=== PATIENT | female | born 1985 | race Caucasian/White ===

== ENCOUNTER 2020-04-08 08:34 | Outpatient (REF) | payer OTHER, SELFPAY ==
[2020-04-08 11:40] LABS: Alanine Aminotransferase 22 U/L (0-31); Albumin Level 4.2 g/dL (3.5-5.0); Alkaline Phosphatase 72 U/L (39-117); Anion Gap 11 (12-20); Aspartate Amino Transferase 28 U/L (5-31); Bilirubin Total 0.8 mg/dL (0.0-1.0); Blood Urea Nitrogen 30 mg/dL (9-16); Calcium 8.4 mg/dL (8.4-10.2); Carbon Dioxide 22 mmol/L (22-29); Chloride 110 mmol/L (96-108); Cholesterol 182 mg/dL; Estimated Glomerular Filt Rate > 60; Glucose Fasting 81 mg/dL (60-99); HDL Cholesterol 75 mg/dL; LDL Cholesterol Calculated 95 mg/dl; Potassium 3.9 mmol/l (3.3-5.1); Sodium 139 mmol/L (135-145); Total Protein 6.6 g/dL (6.5-8.0); Triglycerides 61 mg/dL
[2020-04-08 11:46] LABS: TSH reflex Free T4 1.49 mIU/mL (0.32-4.0); Vitamin D 25-OH Total 35.4 ng/mL (>30)
[2020-04-10 06:36] LABS: Immunoglobulin A 105 mg/dL (47-310)
[2020-04-10 14:32] LABS: Transglutaminase Ab IgG 2 U/mL; Transglutaminase IgA 1 U/mL
[2020-04-10 18:32] LABS: Gliadin Deamidated IgA Ab 2 Units; Gliadin Deamidated IgG Ab 1 Units
[2020-04-11 14:32] LABS: Endomysial IgA Antibody Negative (Negative)
== END 2020-04-08 08:35 | disposition home or self-care (01) ==
LOC: HO.HMGCLDS 08:34
PROVIDERS: PCP Nurse Practitioner Family; Visit Provider Nurse Practitioner Family
DX: R19.7 Diarrhea, unspecified (principal); Z13.1 Encounter for screening for diabetes mellitus; Z13.220 Encounter for screening for lipoid disorders; Z13.21 Encounter for screening for nutritional disorder; Z13.29 Encounter for screening for other suspected endocrine disorder
CPT/HCPCS: 36415; 80053; 80061; 82306; 82784; 83516; 84443; 86255; 86256

== ENCOUNTER → 2020-04-09 14:08 | Outpatient (BNVA) | payer OTHER, SELFPAY | PROVIDERS: PCP Nurse Practitioner Family; Referring Provider Nurse Practitioner Family; Visit Provider Obstetrics & Gynecology | DX: Z76.89 Persons encountering health services in other specified circumstances (principal) ==

== ENCOUNTER 2020-04-09 17:23 | Outpatient (REF) | payer OTHER, SELFPAY ==
[2020-04-10 02:51] LABS: CT PCR NOT DETECTED (Not Detect.); NG PCR NOT DETECTED (Not Detect.)
[2020-04-10 09:09] LABS: BV Int Neg Control Negative (Negative); BV Int Pos Control Positive (Positive)
== END 2020-04-09 17:24 | disposition home or self-care (01) ==
LOC: HO.LNP 17:23
PROVIDERS: Visit Provider Obstetrics & Gynecology
DX: Z11.3 Encounter for screening for infections with a predominantly sexual mode of transmission (principal)
CPT/HCPCS: 87480; 87491; 87510; 87591; 87660

== ENCOUNTER → 2020-05-08 12:24 | Outpatient (BNVA) | payer OTHER, SELFPAY | PROVIDERS: Visit Provider Physician Assistant | DX: Z76.89 Persons encountering health services in other specified circumstances (principal) ==

== ENCOUNTER → 2020-07-14 10:20 | Outpatient (BNVA) | payer OTHER, SELFPAY | PROVIDERS: PCP Nurse Practitioner Family; Visit Provider Obstetrics & Gynecology | DX: R32 Unspecified urinary incontinence (principal) | CPT/HCPCS: 57160 ==

== ENCOUNTER 2020-08-29 08:26 | Outpatient (REF) | payer OTHER, SELFPAY ==
[2020-08-29 12:32] LABS: Anion Gap 11 (12-20); Blood Urea Nitrogen 26 mg/dL (9-16); Calcium 8.5 mg/dL (8.4-10.2); Carbon Dioxide 22 mmol/L (22-29); Chloride 111 mmol/L (96-108); Estimated Glomerular Filt Rate > 60; Glucose Random 44 mg/dL (60-115); Sodium 140 mmol/L (135-145)
== END 2020-08-29 08:27 | disposition home or self-care (01) ==
LOC: HO.HMGCLDS 08:26
PROVIDERS: PCP Nurse Practitioner Family; Visit Provider Psychiatry & Neurology Psychiatry
DX: Z51.89 Encounter for other specified aftercare (principal)
CPT/HCPCS: 36415; 80048

== ENCOUNTER → 2020-09-05 08:52 | Outpatient (BNVA) | payer OTHER, SELFPAY | PROVIDERS: PCP Nurse Practitioner Family; Visit Provider Obstetrics & Gynecology ==

== ENCOUNTER 2020-09-29 09:38 | Outpatient (RCR) | payer OTHER, SELFPAY ==
--- NOTE | 2020-10-21 11:46 | MHC.PT.DC ---
[facility] [place] [facility] [place] [facility] [place] [facility] [address] Jose Juan Romero 140 [facility] [phone] F: [phone] F: [phone] F: [phone] F: [phone] Physical Therapy Discharge Report Diagnosis: stress urinary incontinence Date of Surgery: Date of Evaluation: 09/29/20 Date of Discharge: 10/21/20 Treatments to Date: 1 Cancellations to Date: No Shows to Date: 1 Discharge Status: Independent with HEP Patient Elected to Stop Discharge Summary: Pt was given a HEP with extensive education on body mechanics, posture, PFM strengthening, behavioral modification. The patient did not return to f/u visits. Pt d/c with HEP. This is a young athletic female patient presenting with stress urinary incontinence with vigorous activity. She had good strength in her core and in her hips. After given patient consent, an inernal pelvic exam revealed poor coordination and significant weakness of her pelvic floor muscles in all three layers. Low tone of levator ani muscles even with cues for activation. Stage 2 Cystourethrocele noted with more descent in standing but it remained a stage 2. The patient had poor PF endurance, and decreased ability to do a quick contraction of her pelvic floor. She did not exhibit a pre activation of her PFM with a cough. In fact, with laughing and coughing she bears down through the pelvic floor. I will also evaluate what is happening in the pelvic floor during a functional squat in subsequent visits since this patient exercises using weights daily, and has a vigorous job. The patient will greatly benefit from Pelvic Floor PT in order to improve coordination, and strength of her pelvic floor muscles, as well as body mechanics training with pre activation of her PFM, Pre activation of her PFM for coughing, sneezing, and laughing when possible. I will also discuss diaphragmatic breathing and pressure control to manage stress on the PFM. Electronically signed by: Rebeka Villegas PT DPT Please sign and return to therapist. Thank you for your referral.
== END 2020-10-21 11:46 | disposition other institution (70) ==
LOC: HO.PT 09:38
PROVIDERS: PCP Nurse Practitioner Family; Visit Provider Obstetrics & Gynecology
DX: N39.3 Stress incontinence (female) (male) (principal)
CPT/HCPCS: 97110; 97112; 97161

== ENCOUNTER → 2021-09-14 08:45 | Outpatient (BNVA) | payer OTHER, SELFPAY | PROVIDERS: Visit Provider Internal Medicine | DX: S39.012A Strain of muscle, fascia and tendon of lower back, initial encounter (principal); X50.0XXA Overexertion from strenuous movement or load, initial encounter | CPT/HCPCS: 81025; 99203 ==

== ENCOUNTER → 2021-09-17 10:31 | Outpatient (BNVA) | payer OTHER, SELFPAY | PROVIDERS: Visit Provider Internal Medicine | DX: S39.012A Strain of muscle, fascia and tendon of lower back, initial encounter (principal); X58.XXXA Exposure to other specified factors, initial encounter | CPT/HCPCS: 99213 ==

== ENCOUNTER → 2021-11-06 13:30 | Outpatient (BNVA) | payer OTHER, SELFPAY | PROVIDERS: Visit Provider Advanced Practice Midwife | DX: Z01.419 Encounter for gynecological examination (general) (routine) without abnormal findings (principal) ==

== ENCOUNTER 2022-05-10 08:17 | Outpatient (REF) | payer OTHER, SELFPAY ==
[2022-05-10 11:29] LABS: MANUAL DIFF FLAG NO
[2022-05-10 11:45] LABS: Basophils Absolute Auto 0.1 X10*3/uL (0.0-0.2); Basophils Percent Auto 0.6 % (0-2); Eosinophils Absolute Auto 0.3 X10*3/uL (0.0-0.4); Eosinophils Percent Auto 3.3 % (0-4); Hematocrit 35.7 % (37.0-47.0); Hemoglobin 11.8 g/dl (12.0-16.0); Imm Gran Abs Auto 0.21 X10*3/uL (0.00-0.03); Imm Gran Pct Auto 2.2 % (0.0-0.4); Lymphocytes Absolute Auto 1.8 X10*3/uL (1.2-4.9); Lymphocytes Percent Auto 18.7 % (20-40); Mean Corpuscular HGB Conc 33.1 g/dl (31.0-35.0); Mean Corpuscular Hemoglobin 32.2 pg (27.0-33.0); Mean Corpuscular Volume 97.5 fL (80.0-98.0); Mean Platelet Volume 11.6 fL (9.4-12.3); Monocytes Absolute Auto 0.9 X10*3/uL (0.1-1.2); Monocytes Percent Auto 9.6 % (2-11); Neutrophils Absolute Auto 6.3 x10*3/uL (2.0-8.3); Neutrophils Percent Auto 65.6 % (45-73); Platelet Count 202 X10*3/uL (160-400); Red Blood Count 3.66 X10*6/uL (4.20-5.50); Red Cell Distribution Width 12.8 % (11.0-16.0); White Blood Count 9.7 X10*3/uL (4.8-10.8)
[2022-05-10 11:49] LABS: Appearance Urine Hazy; Color Urine Yellow; Glucose Urine UA Negative (Negative); Leukocyte Esterase Urine Negative (Negative); Nitrite Urine Negative (Negative); Specific Gravity - Urine 1.015 (1.005-1.025); Urine Blood Negative (Negative); Urine Ketones Negative (Negative); Urine Protein Negative (Neg-Trace)
[2022-05-10 12:24] LABS: TSH reflex Free T4 3.61 uIU/mL (0.32-4.0)
[2022-05-10 12:32] LABS: Alanine Aminotransferase 16 U/L (0-31); Albumin Level 3.7 g/dL (3.5-5.0); Alkaline Phosphatase 59 U/L (39-117); Anion Gap 13 (12-20); Aspartate Amino Transferase 21 U/L (5-31); Bilirubin Total 0.4 mg/dL (0.0-1.0); Blood Urea Nitrogen 15 mg/dL (9-16); Calcium 8.8 mg/dL (8.4-10.2); Carbon Dioxide 19 mmol/L (22-29); Chloride 111 mmol/L (96-108); Cholesterol 204 mg/dL; Estimated Glomerular Filt Rate > 60; Glucose Fasting 75 mg/dL (60-99); HDL Cholesterol 76 mg/dL; LDL Cholesterol Calculated 100 mg/dl; Potassium 3.8 mmol/L (3.3-5.1); Sodium 139 mmol/L (135-145); Total Protein 6.4 g/dL (6.5-8.0); Triglycerides 142 mg/dL
== END 2022-05-10 08:18 | disposition home or self-care (01) ==
LOC: HO.HMGCLDS 08:17
PROVIDERS: PCP Nurse Practitioner Family; Visit Provider Nurse Practitioner Family
DX: Z00.00 Encounter for general adult medical examination without abnormal findings (principal)
CPT/HCPCS: 36415; 80053; 80061; 81003; 84443; 85025

== ENCOUNTER 2023-01-31 08:04 | Outpatient (AMB) | payer OTHER, SELFPAY ==
--- NOTE | 2023-01-31 08:24 | MHC.OFFWIV ---
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 Patient has a rash under both armpits for the past 3 months. 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 Patient reports that when she wears her hair be uniform, the rash symptoms worsen. Itchy. She does not use deodorant. Has been shaving only once a week. Has use ketoconazole and is statin with minimal relief. Discontinued using ketoconazole a month ago. [facility] Medical History Chronic diarrhea Episodic ataxia type 2 Family History Family/Other Breast cancer Maternal Grandfather Substance use disorder Paternal Grandfather Mental health disorder Social History Household Members Other:: lives with 5 y/o daughter and her dad (BF) Housing: House Alcohol intake: current Patient Tobacco Use Status: Never used Tobacco e-Cigarette/Vaping Use: Never Used Second Hand Smoke Exposure: No Patient : No service: Yes Current occupational status: employed Current occupation: [email or web address] Current occupational exposures/hazards: Yes Cognitive needs: No Hearing needs: No Vision needs: No Female Reproductive History Menstrual Age of Menarche: 14 Physical Exam Vital Signs: Last Vital Signs Temp 97.9 F 01/31/23 08:26 Pulse 52 01/31/23 08:26 Resp 20 01/31/23 08:26 BP 98/54 L 01/31/23 08:26 Pulse Ox 98 01/31/23 08:26 Oxygen Delivery Method Room Air 01/31/23 08:26 Skin Other: Right and left axilla: Bilateral erythematous rash, margins are well defined and not raised. Minimal scaling over the rash. Area over the skin is moist. Assessment & Plan Assessment & Plan (1) Rash: Code(s): R21 - Rash and other nonspecific skin eruption Plan: Will treat the rash has irritant dermatitis. Trial of triamcinolone cream. If symptoms do not improve to follow-up here. Medications: New triamcinolone acetonide 0.025% 1 appl topical BID 15 grams 0RF Coding Level of Care Code Est Pt Level 3 (42868) Diagnoses Rash R21
[2023-01-31 08:26] VITALS: BP 98/54; PULSE 52; RESP 20; TEMP 36.6; O2SAT 98
== END 2023-01-31 08:46 | disposition home or self-care (01) ==
PROVIDERS: PCP Nurse Practitioner Family; Visit Provider Internal Medicine
DX: R21 Rash and other nonspecific skin eruption (principal)
CPT/HCPCS: 99213

== ENCOUNTER 2023-07-07 13:56 | Outpatient (AMB) | payer OTHER, SELFPAY ==
--- NOTE | 2023-07-07 13:58 | MHC.PC.OV ---
Vital Signs 07/07/23 14:05 Height 5 ft 5 in Weight 144 lb BMI 24.0 BP 100/60 Blood Pressure Location Rt brachial Position Sitting Pulse 81 Pulse Source Pulse Oximeter Pulse Oximetry (%) 98 Oxygen Delivery Method Room Air Intake Visit Reasons: PE Intake Note: Patient here for Physical exam. Pt would like to talk about right ear pain. last Pap: 2021 at [facility] Allergies No Known Allergies [No Known Allergies*] Allergy (Verified 07/07/23 14:05) Medication List - Last Reconciled 07/07/23 by FARIHA Lew acetazolamide ER mg PO amoxicillin-pot clavulanate 875-125 mg 1 tab PO BID 10 days PNV,calcium 54-xvhn-phblv acid 27 mg iron- 1 mg ( Vitamins Plus Low Iron) 1 tab PO DAILY triamcinolone acetonide 0.025% 1 appl topical BID Tobacco use date assessed: 07/07/23 Dental Screening Dental Screen Date: 07/07/23 Did you have a dental visit in the last 12 months?: Yes Did you have a dental problem in the last 6 months where you did not have access to dental care?: No Was dental information given to patient?: Patient has dentist HPI PE HPI Details Pt is here for a PE. Will order labs. 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 Pt reports right ear discomfort. She believes she has an ear infection. Right TM is bulging and erythematous on exam. She is currently . Will send augmentin. [facility] Medical History Chronic diarrhea Episodic ataxia type 2 Family History Family/Other Breast cancer Maternal Grandfather Substance use disorder Paternal Grandfather Mental health disorder Social History Household Members Other:: lives with 5 y/o daughter and her dad (BF) Housing: House Alcohol intake: current Patient Tobacco Use Status: Never used Tobacco e-Cigarette/Vaping Use: Never Used Second Hand Smoke Exposure: No service: Yes Current occupational status: employed Current occupation: [employer] Current occupational exposures/hazards: Yes Cognitive needs: No Hearing needs: No Vision needs: No Female Reproductive History Menstrual Age of Menarche: 14 Questionnaire Thrive Questionnaire Date Thrive assessed: 05/10/22 AUDIT C Alcohol Use Questionnaire (AUDIT-C) 1. How often do you have a drink containing alcohol?: Never 3. How often do you have six or more drinks on one occasion?: Never Total Score: 0 Score Reviewed/Action Taken: No GUATAM-7 AMB Questionnaire GAUTAM-7 Date GAUTAM - 7 assessed: 05/10/22 Source: Developed by Drs. Mike Pal, Nataliia Rosales, Jayson Shaikh and colleagues, with an educational liseth from [employer]. Review of Systems Const Denies chills and Denies fever(s) Eyes Denies blurry vision ENT Denies vertigo, Denies dizziness and Denies sore throat Card Denies chest pain at rest, Denies chest pain with activity, Denies diaphoresis, Denies dyspnea and Denies dyspnea on exertion Resp Denies cough, Denies dyspnea, Denies dyspnea on exertion and Denies wheezing GI Denies abdominal pain, Denies melena, Denies hematochezia, Denies constipation, Denies diarrhea and Denies loose stools Denies hematuria Musc Denies numbness and Denies tingling Skin/Breast Denies lesions Neuro Denies vertigo, Denies dizziness, Denies numbness and Denies tingling Psych Denies anxiety, Denies depression, Denies homicidal ideation, Denies suicidal ideation and Denies other (substance abuse) Aller/Immun Denies wheezing Physical exam (Primary Care) Vital Signs: Last Vital Signs Pulse 81 07/07/23 14:05 BP 100/60 07/07/23 14:05 Pulse Ox 98 07/07/23 14:05 Oxygen Delivery Method Room Air 07/07/23 14:05 BMI result Body Mass Index 24.0 Tobacco/Smoking Status: Tobacco use Status Tobacco use date assessed 07/07/23 07/07/23 14:09 Patient Tobacco Use Status Never used Tobacco 07/07/23 14:00 e-Cigarette/Vaping Use Never Used 07/07/23 14:00 Thrive Assessment: Date of Thrive Assessment Date Thrive assessed 05/10/22 07/07/23 14:00 Const General: cooperative Nutritional Appearance: well nourished Orientation/consciousness: patient oriented x3 HENMT Other: right TM bulging and erythematous Head: Yes normal to inspection, Yes normocephalic and Yes atraumatic Ears: TM normal on the left Eyes General: appearance normal, both eyes and all related structures Alignment and Position: alignment normal and position normal Neck Neck: Yes normal visual inspection and Yes no lymphadenopathy Thyroid: Thyroid normal Resp Effort & Inspection: normal respiratory effort Auscultation: clear to auscultation bilaterally Cardio Rate: regular rate Rhythm: regular rhythm Heart sounds: S1 normal heart sound present, S2 normal heart sound present and no murmurs GI Palpation (GI): Soft to palpation and nontender Auscultation: normal bowel sounds Skin Rashes: no rashes Neuro General: patient oriented x3, moves all extremities, no focal motor deficits and deep tendon reflexes 2+ bilaterally Romberg Test: Negative Psych Appearance: grossly normal Mental Status: mental status grossly normal Speech and movement: Normal speech and movement present Affect: normal affect Attitude: cooperative Thought process: Normal thought process present Thought content: Normal thought content present Insight: Good insight present (Psych) Judgement: Good judgement present (Psych) Assessment and Plan Assessment & Plan (1) Physical exam: Code(s): Z00. - Encounter for general adult medical examination without abnormal findings Plan: Labs ordered (2) Otitis media: Code(s): H66.90 - Otitis media, unspecified, unspecified ear Plan: antibiotic sent Plan The patient agreed to the use of a medical chief technician for this encounter. Scribed for FARIHA Pandya by Esther Miramontes medical chief technician, on 07/07/2023 at 14:15 EST. Orders: Orders Comprehensive [place]. Panel Fast Today Z00. - Encounter for general adult medical examination without abnormal findings UA CC w/rflx Micro + Cult Today Z.00 - Encounter for general adult medical examination without abnormal findings Lipid Panel Today Z00.00 - Encounter for general adult medical examination without abnormal findings Complete Blood Count Auto Diff Today Z00.00 - Encounter for general adult medical examination without abnormal findings TSH reflex Free T4 Today Z00.00 - Encounter for general adult medical examination without abnormal findings Medications: New amoxicillin-pot clavulanate 875-125 mg 1 tab PO BID 10 days 20 tabs 0RF Coding Level of Care Code Est Pt Prev Care 18-39y(95627) Diagnoses Physical exam Z00.00 Otitis media H66.90
[2023-07-07 14:05] VITALS: BP 100/60; PULSE 81; O2SAT 98; BMI 24.0
== END 2023-07-07 16:21 | disposition home or self-care (01) ==
PROVIDERS: Visit Provider Nurse Practitioner Family
DX: Z00.00 Encounter for general adult medical examination without abnormal findings (principal); H66.90 Otitis media, unspecified, unspecified ear
CPT/HCPCS: 99395

== ENCOUNTER 2023-07-15 07:55 | Outpatient (REF) | payer OTHER, SELFPAY ==
[2023-07-15 11:30] LABS: MANUAL DIFF FLAG NO
[2023-07-15 11:49] LABS: Appearance Urine Clear; Color Urine Yellow; Glucose Urine UA Negative (Negative); Leukocyte Esterase Urine Negative (Negative); Nitrite Urine Negative (Negative); Specific Gravity - Urine 1.025 (1.005-1.025); Urine Blood Negative (Negative); Urine Ketones Negative (Negative); Urine Protein Negative (Neg-Trace)
[2023-07-15 12:00] LABS: Basophils Percent Auto 0.5 % (0-2); Eosinophils Absolute Auto 0.1 X10*3/uL (0.0-0.4); Eosinophils Percent Auto 1.6 % (0-4); Hematocrit 43.7 % (37.0-47.0); Hemoglobin 14.3 g/dl (12.0-16.0); Imm Gran Abs Auto 0.02 X10*3/uL (0.00-0.03); Imm Gran Pct Auto 0.3 % (0.0-0.4); Lymphocytes Percent Auto 35.3 % (20-40); Mean Corpuscular HGB Conc 32.7 g/dl (31.0-35.0); Mean Corpuscular Hemoglobin 31.8 pg (27.0-33.0); Mean Corpuscular Volume 97.3 fL (80.0-98.0); Mean Platelet Volume 11.1 fL (9.4-12.3); Monocytes Absolute Auto 0.5 X10*3/uL (0.1-1.2); Monocytes Percent Auto 8.1 % (2-11); Neutrophils Absolute Auto 3.1 x10*3/uL (2.0-8.3); Neutrophils Percent Auto 54.2 % (45-73); Platelet Count 228 X10*3/uL (160-400); Red Blood Count 4.49 X10*6/uL (4.20-5.50); Red Cell Distribution Width 11.7 % (11.0-16.0); White Blood Count 5.8 X10*3/uL (4.8-10.8)
[2023-07-15 12:52] LABS: Alanine Aminotransferase 13 U/L (0-31); Albumin Level 4.1 g/dL (3.5-5.0); Alkaline Phosphatase 67 U/L (39-117); Anion Gap 13 (12-20); Aspartate Amino Transferase 17 U/L (5-31); Bilirubin Total 0.3 mg/dL (0.0-1.0); Blood Urea Nitrogen 18 mg/dL (9-16); Calcium 9.3 mg/dL (8.4-10.2); Carbon Dioxide 22 mmol/L (22-29); Chloride 112 mmol/L (96-108); Cholesterol 144 mg/dL (<200); Estimated Glomerular Filt Rate > 60; Glucose Fasting 72 mg/dL (60-99); HDL Cholesterol 44 mg/dL (>40); LDL Cholesterol Calculated 91 mg/dL (<100); Potassium 3.6 mmol/L (3.3-5.1); Sodium 143 mmol/L (135-145); Total Protein 7.4 g/dL (6.5-8.0); Triglycerides 45 mg/dL (<150)
[2023-07-15 13:19] LABS: TSH reflex Free T4 1.62 uIU/mL (0.32-4.0)
== END 2023-07-15 07:56 | disposition home or self-care (01) ==
LOC: HO.HMGCLDS 07:55
PROVIDERS: PCP Nurse Practitioner Family; Visit Provider Nurse Practitioner Family
DX: Z00.00 Encounter for general adult medical examination without abnormal findings (principal)
CPT/HCPCS: 36415; 80053; 80061; 81003; 84443; 85025

== ENCOUNTER 2023-07-30 09:12 | Outpatient (AMB) | payer OTHER, SELFPAY ==
--- NOTE | 2023-07-30 09:15 | MHC.OFFWIV ---
Intake Vital Signs 07/30/23 09:21 Height 5 ft 5 in Weight 144 lb 2 oz BMI 24.0 BP 126/74 Blood Pressure Location Lt brachial Position Sitting Pulse 80 Pulse Source Pulse Oximeter Temp 97.8 F Temp Source Temporal Artery Scan Pulse Oximetry (%) 98 Oxygen Delivery Method Room Air Intake Visit Reasons: EP ear infection Intake Note: pt is here for c/o double ear infection mid jun and states she feels like she may need another round of antibitics Patient Tobacco Use Status: Never used Tobacco Allergies No Known Allergies [No Known Allergies*] Allergy (Verified 07/30/23 09:22) Do you need a note to return to daycare/school/sports/work: No HPI HPI Comments History of Present Illness Details This is a 37-year-old female presenting to the office complaining of bilateral ear pain times 1 week. She states she was treated for a right ear infection 07/07/2023 and her symptoms mildly improved. However, she started to develop right ear pain as well as blocked/muffled hearing and some mild left ear pain over the past 1 week. She states that her 9-month-old is sick with similar symptoms and has had 3 rounds of antibiotic treatment without relief. She denies any fever/chills. She denies any nasal/sinus congestion/rhinorrhea. She denies any chest pain/shortness of breath. She denies any abdominal pain or nausea/vomiting/diarrhea. The patient is otherwise feeling well. Of note, the patient is . [facility] Medical History Chronic diarrhea Episodic ataxia type 2 Family History Family/Other Breast cancer Maternal Grandfather Substance use disorder Paternal Grandfather Mental health disorder Social History Household Members Other:: lives with 5 y/o daughter and her dad (BF) Housing: House Alcohol intake: current Patient Tobacco Use Status: Never used Tobacco e-Cigarette/Vaping Use: Never Used Second Hand Smoke Exposure: No service: Yes Current occupational status: employed Current occupation: [employer] Current occupational exposures/hazards: Yes Cognitive needs: No Hearing needs: No Vision needs: No Female Reproductive History Menstrual Age of Menarche: 14 Review of Systems Const All systems reviewed & are unremarkable except as noted in HPI and below Reports no additional complaints Eyes Reports no additional complaints ENT Reports no additional complaints Card Reports no additional complaints Resp Reports no additional complaints GI Reports no additional complaints Reports no additional complaints Musc Reports no additional complaints Skin/Breast Reports system reviewed and no additional complaints, except as documented Neuro Reports no additional complaints Psych Reports no additional complaints Endo Reports no additional complaints Michael/Lymph Reports no additional complaints Aller/Immun Reports no additional complaints Physical Exam Vital Signs: Last Vital Signs Temp 97.8 F 07/30/23 09:21 Pulse 80 07/30/23 09:21 BP 126/74 07/30/23 09:21 Pulse Ox 98 07/30/23 09:21 Oxygen Delivery Method Room Air 07/30/23 09:21 BMI result Body Mass Index 24.0 Const Other: Vital signs reviewed. Constitutional: Non-toxic appearing. No acute distress. Well-developed and well-nourished. HEENT: Normocephalic and atraumatic. There is erythema, edema, and bulging of bilateral tympanic membranes. There is no postauricular erythema, mass, swelling, or tenderness to palpation. Skin: Warm and dry. No rashes or lesions noted. Neck: Full and painless range of motion. No cervical lymphadenopathy. Cardio: Regular rate. No lower extremity edema. No JVD. Pulmonary: No respiratory distress. No accessory muscle usage. Gastrointestinal: Soft, nontender, and nondistended in all 4 quadrants. Musculoskeletal: Normal range of motion in joints throughout the body. No deformity or other signs of injury. Neuro: Alert and oriented x4. Cranial nerves 2-12 grossly intact. No focal deficits appreciated. Psych: Normal mood and affect. Assessment & Plan Assessment & Plan (1) Acute otitis media, bilateral: Code(s): H66.93 - Otitis media, unspecified, bilateral Plan: This is a 37-year-old female who was recently treated for a right ear infection who presented to the walk-in clinic today complaining of bilateral ear pain (right greater than left) over the past 1 week. The patient has 9-month-old is sick with similar symptoms and has required 3 rounds of antibiotics without relief. On physical examination, there is erythema, edema, and bulging of her bilateral tympanic membranes consistent with bilateral acute otitis media. Given the patient did not have relief with amoxicillin/clavulanate, have ordered p.o. cefdinir 300 mg twice daily times 10 days, which is safe for breast-feeding woman. Patient was advised to follow-up here or proceed to the emergency room if she were to develop persistent or worsening symptoms. Patient verbalized understanding and is agreeable with the plan. Medications: New cefdinir 300 mg PO BID 20 caps 0RF Coding Level of Care Code Est Pt Level 3 (83740) Diagnoses Acute otitis media, bilateral H66.93
[2023-07-30 09:21] VITALS: BP 126/74; PULSE 80; TEMP 36.6; O2SAT 98; BMI 24.0
== END 2023-07-30 09:55 | disposition home or self-care (01) ==
PROVIDERS: PCP Nurse Practitioner Family; Visit Provider Physician Assistant Medical
DX: H66.93 Otitis media, unspecified, bilateral (principal)
CPT/HCPCS: 99051; 99213

== ENCOUNTER 2023-08-10 08:02 | Outpatient (AMB) | payer OTHER, SELFPAY ==
[2023-08-10 08:05] VITALS: BP 92/60; PULSE 60; TEMP 36.7; O2SAT 98; BMI 24.1
--- NOTE | 2023-08-10 08:05 | AM.OFFWIN_ITS ---
Intake Vital Signs 08/10/23 08:05 Height 5 ft 5 in Weight 145 lb BMI 24.1 BP 92/60 Blood Pressure Location Rt brachial Position Sitting Pulse 60 Pulse Source Pulse Oximeter Temp 98.0 F Temp Source Oral Pulse Oximetry (%) 98 Oxygen Delivery Method Room Air Intake Visit Reasons: EP lower back pain ear infection Intake Note: Pt is here today c/o lower back pain ? pulled muscle: bilateral ear pain Patient Tobacco Use Status: Never used Tobacco Allergies No Known Allergies [No Known Allergies*] Allergy (Verified 08/10/23 08:06) HPI EP lower back pain ear infection HPI Details 37-year-old female presents [facility] for [facility] sick visit. She is 2 complaints. Complaining of lower back pain for the past month. 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 Pain is in the lower back radiating into the legs at times. Worse with exercise. The pain is intermittent and always related to bending or exercise. No fevers or chills. Not reporting any urinary symptoms. Patient also feels her right ear is blocked. Occasional discomfort. No other symptoms, including postnasal drip or fever or chills. [facility] Medical History Chronic diarrhea Episodic ataxia type 2 Family History Family/Other Breast cancer Maternal Grandfather Substance use disorder Paternal Grandfather Mental health disorder Social History Household Members Other:: lives with 5 y/o daughter and her dad (BF) Housing: House Alcohol intake: current Patient Tobacco Use Status: Never used Tobacco e-Cigarette/Vaping Use: Never Used Second Hand Smoke Exposure: No service: Yes Current occupational status: employed Current occupation: [employer] Current occupational exposures/hazards: Yes Cognitive needs: No Hearing needs: No Vision needs: No Female Reproductive History Menstrual Age of Menarche: 14 Physical Exam Vital Signs: Last Vital Signs Temp 98.0 F 08/10/23 08:05 Pulse 60 08/10/23 08:05 BP 92/60 08/10/23 08:05 Pulse Ox 98 08/10/23 08:05 Oxygen Delivery Method Room Air 08/10/23 08:05 BMI result Body Mass Index 24.1 Const General: cooperative and healthy appearing Nutritional Appearance: well nourished Orientation/consciousness: patient oriented x3 Limitations: no limitations HEENT Head: Yes normal to inspection Eyes General: appearance normal, both eyes and all related structures Neck Neck: Yes normal visual inspection Chest Chest palpation & inspection: normal palpation of entire chest wall Resp Effort & Inspection: normal respiratory effort General: Yes no CVA tenderness Back/Spine/Pelvis Other: No paraspinal spasm. Back: no CVA tenderness Neuro General: patient oriented x3 Assessment & Plan Assessment & Plan (1) Lower thoracic back pain: Code(s): M54.6 - Pain in thoracic spine Plan: Anti-inflammatory and muscle relaxant to be called in. Physical therapy to be ordered. Patient is nursing an 8-month-old infant and I advised her to take the medication sparingly. (2) Upper respiratory tract infection: Code(s): J06.9 - Acute upper respiratory infection, unspecified Plan: Self-limiting illness. No antibiotics needed. Coding Level of Care Code Est Pt Level 4 (06715) Diagnoses Lower thoracic back pain M54.6 Upper respiratory tract infection J06.9
== END 2023-08-10 08:41 | disposition home or self-care (01) ==
PROVIDERS: PCP Nurse Practitioner Family; Visit Provider Internal Medicine
DX: M54.6 Pain in thoracic spine (principal); J06.9 Acute upper respiratory infection, unspecified
CPT/HCPCS: 99214

== ENCOUNTER 2024-02-04 09:08 | Outpatient (AMB) | payer BC, SELFPAY ==
--- OUTSIDE RECORDS SUMMARY | 2024-02-04 09:10 | XMS_ITS ---
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 Name Role Phone Bill Harmon Primary Care Provider TAPAN Valdez [phone] REASON FOR VISIT Urgent Med Refill Encounters Encounter Location Date Provider Diagnosis [facility], [address] [address] 05/23/2023 TAPAN GARSIA Plan Of Treatment Next Appt Details Provider Name:TAPAN FERRER [facility], 04/06/2024 04:00:00 PM, [address] [place] [address], [place] [address], [place], [id number], Progress Notes * SHERYL GARCIADOB: 5 (37 yo F)Acc No.[id number]:05/23/2023 Patient:?SHERYL GARCIA :1985???Age:37 Y???Sex:Female Address:[address] [place] [address], [id number] * true * Date:? Generated for Printi ng/Famadeleineg/eTransmitting on:?02/04/2024 09:10 AM EDT
--- OUTSIDE RECORDS SUMMARY | 2024-02-04 09:10 | XMS_ITS | Patient Health Record ---
Author Organization [facility] Address [address] [place] [address] Care Team Providers Care Waist Cutter Name Role Phone Bill Harmon Primary Care Provider TAPAN Valdez [phone] Allergies No Known Allergies Reason For Referral No Information Medications Medication SIG (Take, Route, Fr equency, Duration) Notes Start Date End Date Status 27-1 MG 1 tablet Orally Once a day Active acetaZOLAMIDE ER 500 MG 3 capsule Orally Once a day for 90 days Active Social History Tobacco Use: Social History Observation Description Date Details (start date - stop date) Never Smoker NA - NA Tobacco Use/Smoking Question Answer Notes Are you a nonsmoker Tobacco use other than smoking: Question Answer Notes Are you an other tobacco user? No Problems Problem Type SNOMED Code ICD Code Onset Dates Problem Status W/U Status Risk Notes Problem Walking disability (068523164) Difficulty in walking, not elsewhere classified (R26.2) Active confirmed Problem 988617041 Ataxia, unspecified (R27.0) Active confirmed Problem Slurred speech (248031629) Slurred speech (R47.81) Active confirmed Problem Ataxia (01981562) Ataxia (R27.0) Active confirmed Problem 99153023 Attention deficit (R41.840) Active confirmed Vital Signs Height 66 in 07/15/2023 Weight 139 lbs 07/15/2023 BMI 22.43 kg/m2 07/15/2023 Encounters Encounter Location Date Provider Diagnosis [facility] [address] [address] 05/23/2023 TAPAN G[address]IA [address] [address] 05/23/2023 TAPAN GARSIA [facility], [address] [place] [address] 07/15/2023 TAPAN GARSIA Genetic susceptibility to other disease Z15.89 ; Ataxia, unspecified R27.0 and Attention deficit R41.840 Assessments Encounter Date Diagnosis (ICD Code) Assessment Notes Treatment Notes Treatment Clinical Notes 07/15/2023 Genetic susceptibility to other disease (ICD-10 - Z15.89) 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 She is consistent with her acetazolamide, currently and baby doing well. Had reviewed at length risk and benefit of continued use of acetazolamide during and and this is safest for her and the baby. 07/15/2023 Ataxia, unspecified (ICD-10 - R27.0) See above 07/15/2023 Attention deficit (ICD-10 - R41.840) History of attention deficit by exam and neuropsychological testing. Methylphenidate is not safe in so will hold while . Did discuss taking it while - discussed risk is low to baby but may have some small amount in breastmilk, so to try and avoid it, but if needed take it after feeding as she was on immediate release med which is short acting. Not on it currently, will send refills when appropriate. 07/15/2023 Other Neuro, I spent a total of 30 minutes on the present encounter, which includes preparing for the encounter, obtaining history, performing examination, reviewing diagnostic data, ordering medications/testing/pro cedures and other care coordination, referring to and communicating with other health foster care worker, documenting clinical information in the record, counseling, providing instructions and answering the patient's questions. The patient understands and agrees with the plan of care outlined. This is a telehealth visit that was performed with the originating site at patient's HOME and the distant site at physician's office. Verbal consent to participate in interactive audio/video visit was obtained as noted above. This particular visit occurred during the COVID19 outbreak. I discussed with the patient the nature of our telehealth visits, that: I would evaluate the patient and recommend diagnostics and treatments based on my assessment; Our sessions are not being recorded and that personal health information is protected; Our team would provide follow up care in person if/when the patient needs it. This note was generated with voice recognition software. Please excuse any errors which may have been overlooked during review. Sometimes these errors may affect the content or meaning of a given sentence. If any questions, please contact the TR[facility] W[facility] office at [phone]. Plan Of Treatment Pending Test Test Name Order Date BASIC METABOLIC PANEL 04/08/2020 Next Appt Details Provider Name:TAPAN CARISSA [facility], 04/06/2024 04:00:00 PM, [address] [place] [address], [facility] [address], [place], [address], Insurance Providers Payer Name Payer Address Payer Phone Subscriber Number Group Number Insured Name Patient Relationship to Insured Coverage Start Date Coverage End Date [facility] [address] [place] [address] [phone] [id number] SHERYL GARCIA Self - patient is the insured Medical (General) History Medical History History ICD Code Ataxia Difficulty in walking, not elsewhere cla ssified Slurred speech R cranial nerve IV palsy from Surgical History Surgery Date(Month/Year)
--- OUTSIDE RECORDS SUMMARY | 2024-02-04 09:10 | XMS_ITS ---
Author Organization [facility] [employer] [facility] Address [address] [place] [address] Care Team Providers Care Guidance Adviser Name Role Phone Bill Harmon Primary Care Provider TAPAN Valdez [phone] REASON FOR VISIT refill Medications Medication SIG (Take, Route, Fr equency, Duration) Notes Start Date End Date Status acetaZOLAMIDE ER 500 MG 3 capsule Orally once a day for 90 days 05/23/2023 Active Encounters Encounter Location Date Provider Diagnosis [facility] [employer] [address] [address] 05/23/2023 TAPAN GARSIA Plan Of Treatment Medication Medication Name Sig Start Date Stop Date Notes acetaZOLAMIDE ER 500 MG 3 capsule Orally once a day for 90 days 05/23/2023 Next Appt Details Provider Name:TAPAN FERRER [facility], 04/06/2024 04:00:00 PM, [address] [place] [address], [place] [address], [place], [address], Progress Notes * SHERYL GARCIADOB: 5 (37 yo F)Acc No.[id number]:05/23/2023 Patient:?SHERYL GARCIA :1985???Age:37 Y???Sex:Female Address:[address] [place] [address], [address] * Refills? Start acetaZOLAMIDE ER Capsule Extended Release 12 Hour, 500 MG, Orally, 270 Capsule, 3 capsule, once a day, 90 days, Refills=2 * true * Date:? Generated for Kalia segovia/Kayla/Ricardoitting on:?02/04/2024 09:10 AM EDT
--- OUTSIDE RECORDS SUMMARY | 2024-02-04 09:10 | XMS_ITS ---
Author Organization [facility] [facility] Address [address] [place] [address] Care Team Providers Care Vegetable Farm Manager Name Role Phone Bill Harmon Primary Care Provider TAPAN Valdez [phone] REASON FOR VISIT [phone] doxy 6 mo f/u ataxia, attention deficite Medications Medication SIG (Take, Route, Fr equency, [...] Are you an other tobacco user? No Vital Signs Height 66 in 07/15/2023 Weight 139 lbs 07/15/2023 BMI 22.43 kg/m2 07/15/2023 Encounters Encounter Location Date Provider Diagnosis [facility] [address] [address] 07/15/2023 TAPAN GARSIA Genetic susceptibility to other [...] referring to and communicating with other health assisted living care manager, documenting clinical information in the record, counseling, [...] sentence. If any questions, please contact the INSURANCE ADMINISTRATOR office at [phone]. Plan Of Treatment Medication Medication Name Sig Start Date Stop Date Notes acetaZOLAMIDE ER 500 MG 3 capsule Orally Once a day for 90 days Next Appt Details Follow Up: 1 year F2F (can b e in better weather time), Reason: Provider Name:TAPAN FERRER [facility], 04/06/2024 04:00:00 PM, [address] [place] [address], [address], [place], [address], Progress Notes * LISETTE GARCIADOB: 5 (37 yo F)Acc No.[id number]:07/15/2023 Patient:?LISETTE GARCIA Provider:?TAPAN GARSIA D.O :1985???Age:37 Y???Sex:Female D ate:07/15/2023 Address:[address] [place], [place] [id number] Pcp:Bill Harmon Subjective: * Chief Complaints: * ???[phone] doxy 6 mo f/ u ataxia, attention deficite * HPI: ???Interim History:? Lisette presents for follow up for history of episodic ataxia type II, as well as attention deficit. ?Lisette follows up over video. She had her second child, he is doing ok but small and having trouble eating, which is making her worried. Also, she has an ear infection and is on antibiotics currently, not taking her EA meds regularly but not having any breakthrough symptoms notable. Otherwise doing well, no issues to report. ?To review, had a 4 hr episode on 06/28/22- she was out with friends for lunch, and noticed symptoms coming on- imbalance in her legs, did drive home safely, but once she got home felt she couldnt climb the stairs, needed to really force herself, lay down for 30 mins and they resolved. This was the most severe episode she has had- did not take her meds that day notably. ? OTherwise, no new medical issues or symptoms noted. ?labs- ?07/2020- Na 140, Creat 1.02 all else WNL EXCEPT glucose 44- she notes she felt fine that day, had eaten, may have been lab error?To review her history, she initially noticed the episodes around age 17 which she describes as being like she is drunk . During these episodes she has difficulty walking, tries to steady herself and hopes that other people don't notice the symptoms. They can last anywhere from 15 minutes up to 4 hours, can occur daily for few months time and then go up to 6 months or more without any episodes. Rarely she'll have slurred speech with these episodes as well. There is a very strong family history and due to this she was diagnosed with episodic ataxia type II autosomal dominant however was unable to get genetic testing. She's been treated with acetazolamide and has been stable taking 3 tablets once daily which is controlled her symptoms extraordinarily well in the past. ?In the past he worked her up for attention deficit and on neuropsychological testing she does appear to have this problem. We have tried her on methylphenidate low dose which was helpful, now Rx by her PCP In addition we've had an EEG in the past to ensure that she is not having occult seizures and this was normal and negative. She denies any symptoms of sleep apnea but continues to have daily fatigue but has a very stressful job and is going to grad school as well. ?workup reviewed: ?EEG 12/31/2016- normal study, background of 10-10.5HZ. ?MRI brain- Apr 2018 normal study no abnormalities noted. * ROS:?*SS ROS:?Headache?denies.?Eye Pain?denies.?Vertigo?denies.?Lightheadedness?denies.?Blurred Vision?denies.?Fever?denies.?Chills?denies.?Nausea?denies.?Hearing Difficulty?denies.?Swallowing Difficulty?denies.?Speech Difficulty?denies.?Tinnitus?denies.?Chest Pain?denies.?Shortness of Breath?denies.?Dizziness?denies.?Palpitations?denies.?Abdominal Pain?denies.?Diarhea?denies.?Constipation?denies.?Numbness?denies.?Tingling?jude es.?W eakness?denies.?Bladder/Bowel Dysfunction?denies.?Dysuria?denies.?Anxiety or Depression?denies.?Hallucinations?denies.?Delusions?denies.?Recent Falls?denies.?Fine Motor Skills?OK.?*Psychiatry:?AUDITORY/VISUAL HALLUCINATIONS?denies .?DELUSIONS?denies.?EATING DISORDER?denies.?LOSS OF APPETITE?denies.?MENTAL OR PHYSICAL ABUSE?denies.?SUBSTANCE ABUSE?denies.?SUICIDAL THOUGHTS?denies.?All other 11 systems are?negative ,?negative other than sleep difficulties.? * Medical History:? * Surgical History:?No Surgica l History documented. * Hospitalization/Major Diagno stic Procedure:?No Hospitalization History. * Family History:?Father: gary garza 50 yrs.?Mother: alive 55 yrs.?1 daughter(s) - healthy. .? uncle with EA type 2. * Social History:?Tobacco Use:?Tobacco Use/Smoking?Are you a?nonsmoker.?Tobacco use other than smoking?Are you an other tobacco user??No.?Drugs/Alcohol:?Drugs?Have you used drugs other than those for medical reasons in the past 12 months??No.?Caffeine?Intake:?1-2 cups per day.?Do you smoke marijuana?: Denies. Do you drink alcohol?: Yes, Socially. 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 * Medications:?TakingPrenatal 27-1 MG Tablet 1 tablet Orally Once a day acetaZOLAMIDE ER 500 MG Capsule Extended Release 12 Hour 3 capsule Orally Once a day Taking 27-1 MG Tablet 1 tablet Orally Once a day Taking acetaZOLAMIDE ER 500 MG Capsule Extended Release 12 Hour 3 capsule Orally Once a day DiscontinuedacetaZOLAMIDE ER 500 MG Capsule Extended Release 12 Hour 3 capsule Orally once a day Medication List reviewed and reconciled with the patientDiscontinued acetaZOLAMIDE ER 500 MG Capsule Extended Release 12 Hour 3 capsule Orally once a day Medication List reviewed and reconciled with the patient * Allergies:?no[Allergies Veri fied] Objective: * Vitals:?Wt:139lbs, BMI:22.43 Index, Ht: 66 in, Pain scale:01-10, Ht-cm: 167.64 cm, Wt-k.05 kg. * Examination: ???General Examination: ?GENERAL APPEARANCE:?in no acute distress, well developed, well nourished.?HEAD:?normocephalic, atraumatic.?EARS:?normal.?NOSE:? nares patent, no lesions.?ORAL CAVITY:? normal, good dentition, mucosa moist, palate normal, tongue in midline.?SKIN:? normal, no rashes, no suspicious lesions on exposed skin. Notably has depigmented patches on skin (vitiligo).?EXTREMITIES:?no clubbing, cyanosis, or edema.?NEUROLOGIC:?Cognition: alert, oriented to person, place, time and situation, gives appropriate short term and rodent exterminator personal history, speech fluent with no aphasic errors noted, ?deferred exam over video today ?.?PSYCH:?Mental status: Pt seen and examined in the office. Dressed appropriately for the weather and situation, grooming intact. Affect was calm, mood described as good! . Speech was fluent, without neologisms or flight of ideas noted. Thought process was logical and goal oriented, though content notable for? worries about her daughter?, but devoid of thoughts of wanting to harm themselves or others, no delusions, hallucinations or mis noted. Judgement and insight were intact and appropriate for participation in informed consent and treatment on an outpatient basis..? Assessment: * Assessment: 1.?Genetic susceptibility to other disease - Z15.89 (Primary)?2.?Ataxia, unspecified - R27.0?3.?Attention deficit - R41.840? Plan: * Treatment: 2.?Ataxia, unspecified? Continue acetaZOLAMIDE ER Capsule Extended Release 12 Hour, 500 MG, 3 capsule, Orally, Once a day, 90 days, 270 Capsule, Refills 1.?? Clinical Notes: See above?? 3.?Attention deficit? Clinical Notes:History of attention deficit by exam and neuropsychological [...] it currently, will send refills when appropriate. ?? 4.?Others? Clinical Notes: Neuro, I spent a total of 30 minutes on the present encounter, which includes preparing for the encounter, obtaining history, performing examination, reviewing diagnostic data, ordering medications/testing/procedures and other care coordination, referring to and communicating with other health assisted living care manager, documenting clinical information in the record, counseling, [...] sentence. If any questions, please contact the INSURANCE ADMINISTRATOR office at [phone].?? * Procedure Codes:? * Follow Up:?1 year F2F (can b e in better weather time) * * Sign off status: Completed true * Provider:?TAPAN GARSIA D.O Date:?0 07/15/2023 Generated for Kalia segovia/Kayla/Ricardoitting on:?02/04/2024 09:10 AM EDT History and Physical Notes * Examination Category Sub-Category Detail Notes General Examination GENERAL APPEARANCE: in no ac [place] distress, well developed, well nourished HEAD: normocephalic, atrau matic EARS: normal NOSE: nares patent, no les ions NEUROLOGIC: Cognition: alert, oriented to person, place, time and situation, gives appropriate short term and rodent exterminator personal history, speech fluent with no aphasic errors noted, deferred exam over video today SKIN: normal,no rashes,no suspicious lesions on exposed skin. Notably has depigmented patches on skin (vitiligo) EXTREMITIES: no clubbing, cyanosi s, or edema PSYCH: Mental status: Pt se en and examined in the office. Dressed appropriately for the weather and situation, grooming intact. Affect was calm, mood described as good! . Speech was fluent, without neologisms or flight of ideas noted. Thought process was logical and goal oriented, though content notable for worries about her daughter , but devoid of thoughts of wanting to harm themselves or others, no delusions, hallucinations or mis noted. Judgement and insight were intact and appropriate for participation in informed consent and treatment on an outpatient basis. ORAL CAVITY: normal, good dentiti on, mucosa moist, palate normal, tongue in midline
[2024-02-04 09:11] VITALS: BP 98/66; PULSE 60; O2SAT 98; BMI 24.1
--- NOTE | 2024-02-04 09:11 | MHC.OFFWIV ---
Intake Vital Signs 02/04/24 09:11 Height 5 ft 5 in Weight 145 lb BMI 24.1 BP 98/66 Blood Pressure Location Lt brachial Position Sitting Pulse 60 Pulse Source Pulse Oximeter Pulse Oximetry (%) 98 Oxygen Delivery Method Room Air Intake Visit Reasons: EP LT ankle injury Intake Note: pt is here for left ankle injury, patient went to foam pit with daughter and hurt it Patient Tobacco Use Status: Never used Tobacco Allergies No Known Allergies [No Known Allergies*] Allergy (Verified 02/04/24 09:11) Do you need a note to return to daycare/school/sports/work: Yes HPI EP LT ankle injury HPI Details Patient is a 38-year-old female comes to the walk-in clinic complaining of left ankle pain after jumping in a foam pit, and feeling in hearing what she described as a crack sensation. No issues to ankle foot prior to injury. No complaint of weakness, numbness or tingling. Pain is worse with ambulating, and improves with rest. [facility] Medical History Chronic diarrhea Episodic ataxia type 2 Family History Family/Other Breast cancer Maternal Grandfather Substance use disorder Paternal Grandfather Mental health disorder Social History Household Members Other:: lives with 5 y/o daughter and her dad (BF) Housing: House Alcohol intake: current Patient Tobacco Use Status: Never used Tobacco e-Cigarette/Vaping Use: Never Used Second Hand Smoke Exposure: No service: Yes Current occupational status: employed Current occupation: [employer] Current occupational exposures/hazards: Yes Cognitive needs: No Hearing needs: No Vision needs: No Female Reproductive History Menstrual Age of Menarche: 14 Review of Systems Const All systems reviewed & are unremarkable except as noted in HPI and below Physical Exam Vital Signs: Last Vital Signs Pulse 60 02/04/24 09:11 BP 98/66 02/04/24 09:11 Pulse Ox 98 02/04/24 09:11 Oxygen Delivery Method Room Air 02/04/24 09:11 BMI result Body Mass Index 24.1 Extrem Other: Patient has mild edema to the left lateral malleolar area, in the anterior ankle. There is no erythema, ecchymosis, lacerations or other skin trauma. She has good range of motion and intact plantar and dorsiflexion strength. However she has tenderness with both dorsi and plantar flexion, and has an antalgic gait with ambulating. She is neurovascularly intact distally. Results Reviewed Results Reviewed: Plain film x-ray of the ankle ordered, and no obvious acute osseous injury visualized. She does a plantar calcaneal spur. Assessment & Plan Assessment & Plan (1) Left ankle sprain: Code(s): S93.402A - Sprain of unspecified ligament of left ankle, initial encounter Plan Patient is a 38-year-old female comes to the walk-in clinic complaining of pain to the left ankle after jumping into a foam pit, hearing a crack and having pain especially with ambulating. She is able to tolerate weight-bearing fine however, and on plain film x-ray today there is no apparent acute injury. Likely this is a sprain, although high-grade sprain versus occult fracture is still in the differential. We applied an Dieter wrap to the ankle for compression and an air cast which most resolved pain, and she was ambulating without difficulty. She declines crutches today. We discussed resting, elevating, icing, using the compression wrap and avoiding exertion until symptoms are improving. She can also take an NSAID as needed for the inflammation and pain, and I wrote her for naproxen today. I did also put through a referral for ortho, as she reports that she does not think she would be able to get in with primary care quickly if symptoms are not improving in the next week or so. She might be a candidate for a walking boot at that point. Orders: Orders XR ankle LT min 3V 02/04/24 S99.912A - Unspecified injury of left ankle, initial encounter Referrals Orthopedics Referral S99.912A - Unspecified injury of left ankle, initial encounter Medications: New naproxen 500 mg PO BID PRN 28 tabs 0RF pain 14 days Coding Level of Care Code Est Pt Level 3 (39185) Diagnoses Left ankle sprain S93.402A
== END 2024-02-04 10:26 | disposition home or self-care (01) ==
PROVIDERS: PCP Nurse Practitioner Family; Visit Provider Physician Assistant Medical
DX: S93.402A Sprain of unspecified ligament of left ankle, initial encounter (principal)
CPT/HCPCS: 99213

== ENCOUNTER 2024-02-04 09:25 | Outpatient (REF) | payer BC, SELFPAY ==
--- NOTE | ~2024-02-04 | XR_ITS ---
EXAMINATION: XR ANKLE, LEFT CLINICAL INFORMATION: Pain COMPARISON: Left foot radiograph from 03/13/2012 TECHNIQUE: AP, lateral, and mortise views of the left ankle. FINDINGS: No acute visible fracture or dislocation. Ankle mortise is symmetric. Small plantar heel spur. Joint space alignment otherwise maintained. Soft tissues are unremarkable. XR/XR ankle LT min 3V IMPRESSION: 1. No acute visible fracture or dislocation. 2. Small plantar heel spur.
== END 2024-02-04 09:26 | disposition home or self-care (01) ==
LOC: HO.HMGCX 09:25
PROVIDERS: PCP Nurse Practitioner Family; Visit Provider Physician Assistant Medical
DX: S99.912A Unspecified injury of left ankle, initial encounter (principal)
CPT/HCPCS: 73610

== ENCOUNTER 2024-10-03 06:48 | Outpatient (AMB) | payer BC, SELFPAY ==
--- OUTSIDE RECORDS SUMMARY | 2024-10-03 06:50 | XMS_ITS ---
Author Organization [facility] Address [address] [place] [address] Care Team Providers Care Recordings Librarian Name Role Phone Bill Harmon Primary Care Provider TAPAN Valdez [phone] REASON FOR VISIT Refills Medications Medication SIG (Take, Route, Fr equency, Duration) Notes Start Date End Date Status acetaZOLAMIDE ER 500 MG 3 capsule Orally Once a day for 90 days Active Encounters Encounter Location Date Provider Diagnosis [address] [address] 03/29/2024 TAPAN GARSIA Ataxia, unspecified R27.0 Assessments Encounter Date Diagnosis (ICD Code) Assessment Notes Treatment Notes Treatment Clinical Notes Section Notes 03/29/2024 Ataxia, unspecified (ICD-10 - R27.0) Plan Of Treatment Medication Medication Name Sig Start Date Stop Date Notes acetaZOLAMIDE ER 500 MG 3 capsule Orally Once a day for 90 days Next Appt Details Provider Name:TAPAN FERRER [facility], 03/29/2025 10:00:00 AM, [address] [place] [address], [phone], Progress Notes * SHERYL GARCIADOB: 5 (38 yo F)Acc No.[id number]:03/29/2024 Patient:?SHERYL GARCIA :1985???Age:38 Y???Sex:Female Address:[address] [place] [address], [address] * Refills? Refill acetaZOLAMIDE ER Capsule Extended Release 12 Hour, 500 MG, Orally, 270 Capsule, 3 capsule, Once a day, 90 days, Refills=1 * true * Date:? Generated for Kalia segovia/Kayla/Ricardoitting on:?10/03/2024 06:50 AM EDT
--- OUTSIDE RECORDS SUMMARY | 2024-10-03 06:50 | XMS_ITS | Continuity of Care Document ---
Author Name [facility] Organization [facility] Care Team Providers Care Cutting Machine Operator Name Role Phone DOD-ME Unavailable Unavailable Problems Combined list of problems from Department of Defense and Veterans Affairs facilities. It does not include entries that were removed or entered in error. Problem Status Onset Date Problem Type Date of Resolution Comments Source Ataxia * (ICD-9-CM 781.3) Active Condition [facility] Contraceptive management Active Condition [facility] Dysmenorrhea * (ICD-9-CM 625.3) Active Condition [facility] Dyspareunia * (ICD-9-CM 625.0) Active Condition [facility] Family History of Diabetes Mellitus (ICD-9-CM V18.0) Active Condition [facility] Family History of Stroke (Cerebrovascular) (ICD-9-CM V17.1) Active Condition [facility] Posttraumatic Stress Disorder * (ICD-9-CM 309.81) Active Condition [facility] Immunizations Combined list of available immunizations from the Department of Defense and Veterans Affairs facilities. 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 Status Comments Source FLU,3 YRS (HISTORICAL) 2011 88 complet ed Site: Left Deltoid [facility] FLU,3 YRS (HISTORICAL) 2010 88 complet ed [facility] HPV, UNSPECIFIED FORMULATION 2010 137 complet ed # 1 [facility] FLU,3 YRS (HISTORICAL) 2010 88 complet ed [facility] DTAP, UNSPECIFIED FORMULATION 2009 107 complet ed [facility] TD(ADULT) UNSPECIFIED FORMULATION 2009 139 complet ed [facility] Social History Combined list of available smoking, tobacco, and other social history from Department of Defense and Veterans Affairs facilities. Social History Type Response Date Comment Sour e Tobacco smoking status [facility] LIFETIME NON-TOBACCO USER 11/13/2008 [facility]
--- OUTSIDE RECORDS SUMMARY | 2024-10-03 06:51 | XMS_ITS ---
Author Organization [facility] Address [address] [place] [address] Care Team Providers Care Tool Engine Lathe Set Up Operator Name Role Phone Bill Harmon Primary Care Provider TAPAN Valdez [phone] Allergies No Known Allergies REASON FOR VISIT Doxy follow up ataxia, ADHD Medications Medication SIG (Take, Route, Fr equency, Duration) Notes Start Date End Date Status acetaZOLAMIDE ER 500 MG 3 capsule Orally Once a day for 90 days Active 27-1 MG 1 tablet Orally Once a day Active Social History Tobacco Use: Social History Observation Description Date Details (start date - stop date) Never Smoker NA - NA Tobacco Use/Smoking Question Answer Notes Are you a nonsmoker Tobacco use other than smoking: Question Answer Notes Are you an other tobacco user? 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 Vital Signs Weight 140 lbs 04/06/2024 BMI 22.59 kg/m2 04/06/2024 Height 66 in 04/06/2024 Encounters Encounter Location Date Provider Diagnosis [facility] 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 She is intermittently consistent with her med, does better when she is taking it regularly. 04/06/2024 Ataxia, unspecified (ICD-10 - R27.0) See above 04/06/2024 Attention deficit (ICD-10 - R41.840) History of attention deficit by exam and neuropsychological testing. takes methylphenidate at times, but is inconsistent. Stopped while . 04/06/2024 Other Neuro, I spent a total of 30 minutes on the present encounter, which includes preparing for the encounter, obtaining history, performing examination, reviewing diagnostic data, ordering medications/testing/p rocedures and other care coordination, referring to and communicating with other health career agent, documenting clinical information in the record, counseling, [...] sentence. If any questions, please contact the MANAGER PHYSICAL office at [phone]. Plan Of Treatment Medication Medication Name Sig Start Date Stop Date Notes acetaZOLAMIDE ER 500 MG 3 capsule Orally Once a day for 90 days Next Appt Details Follow Up: 1 year F2F (can b e in better weather time), Reason: Provider Name:TAPAN FERRER [facility], 03/29/2025 10:00:00 AM, [address] [place] [address], [facility] [address], [place], [address], Progress Notes * LISETTE GARCIADOB: 5 (38 yo F)Acc No.[id number]:04/06/2024 Patient:?LISETTE GARCIA Provider:?TAPAN GARSIA D.O :1985???Age:38 Y???Sex:Female D ate:04/06/2024 Address:[address] [place] [address], [phone] Pcp:Bill Harmon Subjective: * Chief Complaints: * ???Doxy follow up ataxia, AD HD * HPI: ???Interim History:? Lisette presents for follow up for history of episodic ataxia type II, as well as attention deficit. Lisette follows up over video.? today She notes she is doing ok now, but her son who is 18 mo had AML and was at [facility] for 5 months- he is now doing ok, but the experience was extremely challenging for her and she is still anxious he may have a relapse. Despite this, she is back to work, exercising, eating well, sleeping ok, and things are back to normal with the family overall. Her daughter has been doing well, does not have signs of the illness and doesnt have the gene that potentially caused the AML. She notes she forgets her meds often, a few times per week, and will have a mild breakthrough episode of ataxia about once every 2-3 weeks, but its very manageable. Not preventing her from doing things at the job or at home notably. No signs of change in mood or other aspects of her life.? To review, had a 4 hr episode on 06/28/22 (while )- she was out with friends for lunch, and noticed symptoms coming on- imbalance in her legs, did drive home safely, but once she got home felt she couldnt climb the stairs, needed to really force herself, lay down for 30 mins and they resolved. This was the most severe episode she has had- did not take her meds that day notably. labs- 07/2020- Na 140, Creat 1.02 all else WNL EXCEPT glucose 44- she notes she felt fine that day, had eaten, may have been lab error? To review her history, she initially noticed the [...] her symptoms extraordinarily well in the past. In the past he worked her up for [...] is going to grad school as well. workup reviewed: EEG 12/31/2016- normal study, background of 10-10.5HZ. MRI brain- Apr 2018 normal study no abnormalities [...] alcohol?: Yes, Socially. 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 * Medications:?TakingPrenatal 27-1 MG Tablet 1 tablet Orally Once a day acetaZOLAMIDE ER 500 MG Capsule Extended Release 12 Hour 3 capsule Orally Once a day Medication List reviewed and reconciled with the patientTaking 27-1 MG Tablet 1 tablet Orally Once a day Taking acetaZOLAMIDE ER 500 MG Capsule Extended Release 12 Hour 3 capsule Orally Once a day Medication List reviewed and reconciled with the patient * Allergies:?N.K.D.A.no[Allerg ies Verified] Objective: * Vitals:?Wt:140lbs, BMI:22.59 Index, Ht: 66 in, Pain scale:01-10, Ht-cm: 167.64 cm, Wt-k.5 kg. * Examination: ???General Examination: ?GENERAL APPEARANCE:?in no acute distress, well developed, well nourished.?HEAD:?normocephalic, atraumatic.?EARS:?normal.?NOSE:? nares patent, no lesions.?ORAL CAVITY:? normal, good dentition, mucosa moist, palate normal, tongue in midline.?SKIN:? normal, no rashes, no suspicious lesions on exposed skin. Notably has depigmented patches on skin (vitiligo).?EXTREMITIES:?no clubbing, cyanosis, or edema.?NEUROLOGIC:?Cognition: alert, oriented to person, place, time and situation, gives appropriate short term and termite control servicer personal history, speech fluent with no aphasic errors noted, deferred exam over video today .?PSYCH:?Mental status: Pt seen and examined in the office. Dressed appropriately for the weather and situation, grooming intact. Affect was calm, mood described as good, now! . Speech was fluent, without neologisms or [...] 1.?Genetic susceptibility to other disease - Z15.89 (Primary)???2.?Ataxia, unspecified - R27.0???3.?Attention deficit - R41.840??? Plan: * Treatment: 2.?Ataxia, unspecified? Continue acetaZOLAMIDE ER Capsule Extended Release 12 Hour, 500 MG, 3 capsule, Orally, Once a day, 90 days, 270 Capsule, Refills 1.?? Clinical Notes: See above?? 3.?Attention deficit? Clinical Notes:History of attention deficit by exam and neuropsychological testing. takes methylphenidate at times, but is inconsistent. Stopped while .?? 4.?Others? Clinical Notes: Neuro, I spent a total of 30 minutes on the present encounter, which includes preparing for the encounter, obtaining history, performing examination, reviewing diagnostic data, ordering medications/testing/procedures and other care coordination, referring to and communicating with other health career agent, documenting clinical information in the record, counseling, [...] sentence. If any questions, please contact the MANAGER PHYSICAL office at [phone].?? * Procedure Codes:? * Follow Up:?1 year F2F (can b e in better weather time) * * Sign off status: Completed true * Provider:?TAPAN GARSIA D.O Date:?1 Generated for Kalia segovia/Kayla/Ricardoitting on:?10/03/2024 06:50 AM EDT History and Physical Notes * Examination Category Sub-Category Detail Notes Category Not es General Examination GENERAL APPEARANCE: in no ac kaylee distress, well developed, well nourished HEAD: normocephalic, atrau matic EARS: normal NOSE: nares patent, no les ions NEUROLOGIC: Cognition: alert, oriented to person, place, time and situation, gives appropriate short term and residential personal history, speech fluent with no aphasic errors noted, deferred exam over video today SKIN: normal,no rashes,no suspicious lesions on exposed skin. Notably has depigmented patches on skin (vitiligo) EXTREMITIES: no clubbing, cyanosi s, or edema PSYCH: Mental status: Pt se en and examined in the office. Dressed appropriately for the weather and situation, grooming intact. Affect was calm, mood described as good, now! . Speech was fluent, without neologisms or [...]
--- OUTSIDE RECORDS SUMMARY | 2024-10-03 06:51 | XMS_ITS | Patient Health Record ---
Author Organization [facility] [employer] Address [address] [address] Care Team Providers Care Health Actuary Name Role Phone Bill Harmon Primary Care Provider Unavailabl TAPAN Burrell Unavailable [phone] Allergies No Known Allergies Reason For Referral Referring Provider First Name Bill Referring Provider Last Name Eden Referred Organization [facility]erred Provider TAPAN GARSIA Referred Address [address] [place] [phone], Referral Priority Routine Medications Medication SIG (Take, Route, Fr equency, [...] an other tobacco user? 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 She is currently grad school that she can take the [employer] examination. 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 Problems Problem Type SNOMED Code ICD Code Onset Dates Problem Status W/U Status Risk Notes Problem Walking disability (768947109) Difficulty in walking, not elsewhere classified (R26.2) Active confirmed Problem [id number] Ataxia, unspecified (R27.0) Active confirmed Problem Slurred speech (078883137) Slurred speech (R47.81) Active confirmed Problem Ataxia (72072411) Ataxia (R27.0) Active confirmed Problem 46160581 Attention deficit (R41.840) Active confirmed Vital Signs Height 66 in 04/06/2024 Weight 140 lbs 04/06/2024 BMI 22.59 kg/m2 04/06/2024 Encounters Encounter Location Date Provider Diagnosis [address] [address] 04/06/2024 TAPAN HOLMAN Genetic susceptibility to other disease Z15.89 ; Ataxia, unspecified R27.0 and Attention deficit R41.[address] [address] 03/29/[address] [address] 03/29/2024 TAPAN HOLMAN Ataxia, unspecified R27.0 Assessments Encounter Date Diagnosis (ICD Code) Assessment Notes Treatment Notes Treatment Clinical Notes Section Notes 03/29/2024 Ataxia, unspecified (ICD-10 - R27.0) 04/06/2024 Genetic susceptibility to other disease (ICD-10 [...] referring to and communicating with other health assistant child care teacher, documenting clinical information in the record, counseling, [...] sentence. If any questions, please contact the AGRICULTURIST office at [phone]. Plan Of Treatment Pending Test Test Name Order Date BASIC METABOLIC PANEL 04/08/2020 Next Appt Details Provider Name:TAPAN CARISSA [facility], 03/29/2025 10:00:00 AM, [address] [place] [address], [place] [address], [place], [address], Insurance Providers Payer Name Payer Address Payer Phone Subscriber Number Group Number Insured Name Patient Relationship to Insured Coverage Start Date Coverage End Date [facility] [address] [place] [address] [id number] SHERYL GARCIA Self - patient is the insured Medical (General) History Medical History History ICD Code Ataxia Difficulty in walking, not elsewhere cla ssified Slurred speech R cranial nerve IV palsy from Surgical History Surgery Date(Month/Year)
--- OUTSIDE RECORDS SUMMARY | 2024-10-03 06:51 | XMS_ITS ---
Author Organization [facility], [facility] Address [address] [place] [address] Care Team Providers Care Brake Drum Molder Name Role Phone Bill Harmon Primary Care Provider TAPAN Valdez [phone] REASON FOR VISIT Refills Encounters Encounter Location Date Provider Diagnosis [facility], [address] [address] 03/29/2024 TAPAN GARSIA Plan Of Treatment Next Appt Details Provider Name:TAPAN FERRER [facility], 03/29/2025 10:00:00 AM, [address] [place] [address], [place], [address], Progress Notes * SHERYL GARCIADOB: 5 (38 yo F)Acc No.[id number]:03/29/2024 Patient:?SHERYL GARCIA :1985???Age:38 Y???Sex:Female Address:[address] [place] [address], [phone] * true * Date:? Generated for Printi juliette/Famadeleineg/eTransmitting on:?10/03/2024 06:50 AM EDT
--- NOTE | 2024-10-03 07:12 | A.OFFPC_ITS ---
Intake Visit Reasons: insomnia Zack [phone] Allergies No Known Allergies [No Known Allergies*] Allergy (Verified 02/04/24 09:11) Medication List - Last Reconciled 10/03/24 by FARIHA Lew naproxen 500 mg PO BID PRN 14 days trazodone 50 mg PO BEDTIME PRN 30 days Tobacco use date assessed: 07/07/23 Dental Screening Dental Screen Date: 07/07/23 HPI insomnia Leenahorafael [phone] HPI Details History of Present Illness The patient is a 38-year-old female presenting with insomnia associated with a grief reaction following the loss of her son to leukemia around six weeks ago. Insomnia manifestations include poor sleep onset and maintenance, more pronounced since the onset of grief. She has trialed melatonin and magnesium without consistent results. Psychosocially, she engages in weekly therapy and b i-weekly grief counseling. Critically, she reports no suicidal or homicidal ideations. Her current therapeutic milieu appears supportive yet insufficient in addressing sleep disturbances. Review of Systems - Psychiatric: Reports insomnia, Denies suicidal ideation, Denies homicidal ideation - Central Nervous System: Reports diffic ulty initiating and maintaining sleep Plan Commenced trazodone at 50 mg for insomnia secondary to grief, permitting two tablets if required. Chosen for sedative effects to improve sleep quality, with monitoring for effectiveness and any adverse reactions. Follow-up coincides with upcoming physical exam; continued psychosocial support remains essential. Discussion Notes I discussed the initiation of trazodone for her insomnia symptoms, explaining the anticipated benefits of improved sleep with low dependence risk. We reviewed the potential for taking two tablets if one is insufficient and outlined the importance of reporting her progress via the patient portal. The importance of ongoing therapy and sessions with the grief counselor was reiterated to address her emotional well-being. We postponed further evaluations or adjustments until the next scheduled physical exam, agreeing on continuous dialogue to ensure appropriate adjustments are made should her condition evolve. Patient Instructions - Start trazodone at 50 mg for insomnia; can take two if necessary - Report any side effects or sleep impro vements via the patient portal - Continue with therapy and grief counse ling sessions - Prepare for follow-up physical exam to evaluate progress PENDING SALE TO [facility] Medical History Chronic diarrhea Episodic ataxia type 2 Family History Family/Other Breast cancer Maternal Grandfather Substance use disorder Paternal Grandfather Mental health disorder Social History Household Members Other:: lives with 5 y/o daughter and her dad () Housing: House Alcohol intake: current Patient Tobacco Use Status: Never used Tobacco e-Cigarette/Vaping Use: Never Used Second Hand Smoke Exposure: No service: Yes Current occupational status: employed Current occupation: [employer] Current occupational exposures/hazards: Yes Cognitive needs: No Hearing needs: No Vision needs: No Female Reproductive History Menstrual Age of Menarche: 14 Questionnaire Thrive Questionnaire Date Thrive assessed: 05/10/22 AUDIT C Alcohol Use Questionnaire (AUDIT-C) 2. How many drinks containing alcohol do you have on a typical day when you are drinking?: 1 or 2 3. How often do you have six or more drinks on one occasion?: Never Total Score: 0 GAUTAM-7 AMB Questionnaire GAUTAM-7 Date GAUTAM - 7 assessed: 05/10/22 Source: Developed by Drs. Mike Pal, Nataliia Rosales, Jayson Shaikh and colleagues, with an educational liseth from [employer]. Physical exam (Primary Care) Tobacco/Smoking Status: Tobacco use Status Tobacco use date assessed 07/07/23 02/04/24 09:04 Patient Tobacco Use Status Never used Tobacco 02/04/24 09:12 e-Cigarette/Vaping Use Never Used 02/04/24 09:04 Thrive Assessment: Date of Thrive Assessment Date Thrive assessed 05/10/22 02/04/24 09:04 Telehealth Telehealth Telehealth Platform: [facility] Location of provider rendering services: practice address Location of patient: address on file Patient Identification confirmed using: Name, : Yes Telehealth method: video Patient verbally consented to treatment: Yes Patient verbally consented to billing insurance company: Yes Patient informed of any privacy concerns related to visit: Yes Minutes spent on Phone/Video with Pt.: 10 Coding Level of Care Code Tele Est Pt Level 3 (66556) Diagnoses Grief at loss of child F43.21; Z63.4 Insomnia G47.00 Assessment & Plan Assessment & Plan (1) Grief at loss of child: Code(s): F43.21 - Adjustment disorder with depressed mood; Z63.4 - Disappearance and of family member Category: Medical (2) Insomnia: Code(s): G47.00 - Insomnia, unspecified Category: Medical Plan . Medications: New trazodone 50 mg PO BEDTIME PRN 30 tabs 2RF sleep 30 days
== END 2024-10-03 07:38 | disposition home or self-care (01) ==
LOC: HO.HMCC 06:48
PROVIDERS: PCP Nurse Practitioner Family; Visit Provider Nurse Practitioner Family
DX: G47.00 Insomnia, unspecified (principal); F43.21 Adjustment disorder with depressed mood; Z63.4 Disappearance and death of family member

== ENCOUNTER → 2024-10-03 06:48 | Outpatient (BNVA) | payer BC, SELFPAY | PROVIDERS: PCP Nurse Practitioner Family; Visit Provider Nurse Practitioner Family ==